=== PATIENT | male | born 1990 | race Caucasian/White ===

== ENCOUNTER 2019-12-28 15:10 | Emergency (ER) | payer BC ==
[2019-12-28] MEDS ORDERED: SODIUM CHLORIDE 1,000 ML IV ONE (15:19)
[2019-12-28 15:20] VITALS: BP 113/71; PULSE 59; TEMP 98.7; BMI 29.6
[2019-12-28] MEDS ORDERED: MAG HYDROX/AL HYDROX/SIMETH 30 ML UNIT-DOSE CUP PO ONE (15:24)
[2019-12-28] MEDS ORDERED: ACETAMINOPHEN 1000 MG/100 ML VIAL (NON FORMULARY) IVPB ONE (15:24)
[2019-12-28] MEDS ORDERED: FAMOTIDINE 20 MG/50 ML IVPB 20 MG/50 ML MG IVPB ONE (15:24)
[2019-12-28] MEDS ORDERED: SODIUM CHLORIDE 0.9% 500 ML INFUS.BAG IV ONE (15:40)
--- NOTE | 2019-12-28 15:45 | PDOC ---
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 Patient states he did not drink any water outside today despite working outside all day. He feels generally weak and dehydrated. Patient is concerned he is experiencing heat exhaustion and wanted to come in to make sure he is okay. Denies chest pain, SOB, difficulty breathing, nausea, vomiting. Denies headache, neck pain, blurry vision. Denies back pain. PCP: None PSH: None reported Allergies: Shellfish Social Hx: Social marijuana and cigarette smoker. Denies illicit drug usage Past History - Medical History Allergies/Adverse Reactions: Allergies Allergy/AdvReac Type Severity Reaction Status Date / Time SEAFOOD Allergy Severe Swelling Uncoded 12/28/19 15:11 Home Medications: Ambulatory Orders NK [No Known Home Medication] 12/28/19 COPD: No - Psycho-Social/Smoking History Smoking History: Current every day smoker Have you smoked in the past 12 months: Yes Number of Cigarettes Smoked Daily: 1 Information on smoking cessation initiated: Yes 'Breaking Loose' booklet given: 02/16/16 - Substance Abuse Hx (Audit-C & DAST Scrn) How often the patient has a drink containing alcohol: Never Score: In Men: 4 or > Positive; In Women: 3 or > Positive: 0 Screen Result (Pos requires Nsg. Audit-10AR): Negative In the last yr the pt used illegal drug/Rx for NonMed reason: No Score: Yes response is considered Positive: 0 Screen Result (Positive result requires Nsg. DAST-10): Negative Review of Systems - Review of Systems Able to Perform ROS?: Yes Comments:: CONSTITUTIONAL: Present: Fatigue Absent: fever, no chills EYES: Absent: visual changes ENT: Absent: ear pain, no sore throat CARDIOVASCULAR: Absent: chest pain, no palpitations RESPIRATORY: Absent: cough, no SOB GI: Absent: abdominal pain, no nausea, no vomiting, no constipation, no diarrhea GENITOURINARY: Absent: dysuria, no frequency, no hematuria MUSKULOSKELETAL: Absent: back pain, no arthralgia, no myalgia SKIN: Absent: rash NEURO: Absent: headache *Physical Exam - Vital Signs Last Vital Signs Temp Pulse Resp BP Pulse Ox 98.7 F 59 L 20 113/71 100 12/28/19 15:11 12/28/19 15:11 12/28/19 15:11 12/28/19 15:11 12/28/19 15:11 - Physical Exam GENERAL: Well-appearing, well-nourished. No apparent distress. HEENT: Normocephalic, atraumatic. PERRL, EOM intact. CARDIOVASCULAR: Normal S1, S2. Regular rate and rhythm. PULMONARY: No evidence of respiratory distress. Lungs clear to auscultation bilaterally. No wheezing, rales or rhonchi. ABDOMEN: Soft, non-distended, non-tender. EXTREMITIES: Normal ROM in all four extremities. No gross deformities. SKIN: Warm, dry. No rash NEUROLOGICAL: No focal neurological deficits. ED Treatment Course - LABORATORY CBC & Chemistry Diagram: 12/28/19 16:09 12/28/19 16:01 Medical Decision Making - Medical Decision Making Carlos is a 29 yo M who denies having any pmh who presents to the [facility] er stating he feels extremely dehydrated after being outside all day as a [employer] worker. Pat nanette states he did not drink any water outside today despite working outside all day. He feels generally weak and dehydrated. Patient is concerned he is experiencing heat exhaustion and wanted to come in to make sure he is okay. Denies chest pain, SOB, difficulty breathing, nausea, vomiting. Denies headache, neck pain, blurry vision. Denies back pain. Vital Signs Temp Pulse Resp BP Pulse Ox 98.7 F 59 L 20 113/71 100 12/28/19 15:11 12/28/19 15:11 12/28/19 15:11 12/28/19 15:11 12/28/19 15:11 DDx IBNLT: Dehydration, heat exhaustion, less likely heat stroke Plan: Hydration, EKG, re-assess EKG: Sinus bradycardia rate of 50, narrow complexes, qrs 96, Prominent R wave in V1, normal axis, no hypertrophy, no ST elevations or depressions, normal T waves, QTc 364 - EKG morphology in lead V1 mildly suspicious for brugada type 1 morphology but clinical scenario not consistent with this. - Handing copy of EKG to patient and instructing him to follow up with PCP regarding EKG to discuss need for cardiology referral Re-assessment: Patient feeling better after IV hydration and tylenol. Labs: Unremarkable and WNL The patient appears clinically sober, is A&O x4, and appears to be capable and have capacity to make reasonable decisions. The patient states they are currently in the emergency department, knows who the president is, states the correct time, correct day, and correct month. The patient is ambulatory in ER and has walked around the nursing station multiple times with a straight gait, and is not ataxic. Tolerating PO well, ate a sandwich and drank juice. Denies having any SI or HI. Patient states will not be driving home. I discussed the physical exam findings, ancillary test results and final diagnoses with the patient. I answered all of the patient's questions. The patient was satisfied with the care received and felt comfortable with the discharge plan and treatment plan. The patient will call their primary care physician within 24 hours to arrange follow-up and will return to the Emergency Department with any new, persistent or worsening symptoms. Dispo: Home with PCP referall/FU and return precautions Please note, this clinical encounter is taking place during a federal and state health care emergency attributable to the novel Stokes Virus pandemic. The [place] of the Department of Health and Human Services has declared, pursuant to the Public Health Service Act 319F-3 (42 U.S.C. 247d-6d), that a covered persons activities related to medical countermeasures against COVID-19 will be immune from liability under Federal and State law. Discharge - Discharge Information Problems reviewed: Yes Clinical Impression/Diagnosis: Dehydration Heat exhaustion Qualifiers: Encounter type: initial encounter Qualified Code(s): T67.5XXA - Heat exhaustion, unspecified, initial encounter Condition: Improved Disposition: HOME - Admission No - Follow up/Referral Referrals: [facility] [place] [Provider Group] - Patient Discharge Instructions Patient Printed Discharge Instructions: Heat Exhaustion and Heat Stroke Additional Instructions: You came into the ER feeling weak and dehydrated. We gave you some IV hydration and you felt better. Your EKG is mildly abnormal in lead V1. We have handed you a copy of the EKG, Please make sure to follow up this finding with your primary care doctor and discuss whether you need to be referred to a fire engine pump operator for this finding. You must return to the Emergency Department with any new complaints, if your symptoms persist and do not improve or if you develop any other new or worsening concerns. As discussed, please call to follow up with your Primary Care physician in 1-2 days to discuss what happened to you in the emergency room, and make sure you are being looked after and taken care of. Your emergency room visit is not complete without this follow up appointment. Please read the attached handouts for further information about your ER visit and what you should do moving forward. Thank you for coming to the [facility]. We hope you feel better soon! Print Language: BOT[place]WANA[place] - Post Discharge Activity
--- NOTE | 2019-12-28 16:01 | PDOC ---
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 Patient was in the back of a [id number] truck, became progressively lightheaded and generally weak and nauseous, did not actually lose consciousness, presents for evaluation. Has had similar episodes in the past, skipped lunch today. - Physicial Exam PE: 12/28/19 16:00 Vital signs stable, normothermic Alert seated comfortably in stretcher Dry mucosa, pupils without jaundice or pallor Heart is regular without murmurs, lungs are clear Epigastric discomfort to palpation without guarding or rebound Neurologically intact - Medical Decision Making 12/28/19 16:00 29-year-old male healthy [employer] worker presents with heat exhaustion, no other red flags on history or physical exam, cardiopulmonary and neurological exams are normal. IV fluids EKG Reassess and disposition accordingly 12/28/19 16:42 received IVF, feels better, tolerating PO EKG wnl stable for d/c, understands return criteria Heart Score/ECG Review #1 ECG reviewed & interpreted by me at: 16:39 General ECG Interpretation: Sinus Rhythm, Normal Rate (50), Normal Intervals (qtc 364, IRBBB), No acute ischemic changes Discharge - Discharge Information Problems reviewed: Yes Clinical Impression/Diagnosis: Heat exhaustion Qualifiers: Encounter type: initial encounter Qualified Code(s): T67.5XXA - Heat exhaustion, unspecified, initial encounter Condition: Improved - Follow up/Referral - Patient Discharge Instructions - Post Discharge Activity
[2019-12-28 16:36] LABS: BASO % 4.6 % (0-2.0); EOS % 1.9 % (0-4.5); HEMATOCRIT 41.9 % (35.4-49); HEMOGLOBIN 14.7 GM/dl (11.7-16.9); LYMPH % 21.1 % (8-40); MCH 30.9 pg (25.7-33.7); MEAN PLT VOLUME 7.8 fl (7.5-11.1); NEUT % 65.4 % (42.8-82.8); PLATELET COUNT 223 K/MM3 (134-434); RBC 4.76 M/mm3 (4.00-5.60); RDW 13.3 % (11.9-15.9); WHITE BLOOD COUNT 6.9 K/mm3 (4.0-10.8)
[2019-12-28 16:46] LABS: ALBUMIN 4.4 g/dl (3.4-5.0); BILIRUBIN,TOTAL 0.6 mg/dl (0.2-1); CALCIUM 9.4 mg/dl (8.5-10); CREATININE 1.1 mg/dl (0.55-1.3); POTASSIUM 4.4 mmol/L (3.5-5.1); TOT PROT 7.4 g/dl (6.4-8.2)
--- NOTE | 2019-12-29 09:16 | EKG ---
Test Reason : Blood Pressure : / mmHG Vent. Rate : 050 BPM Atrial Rate : 050 BPM P-R Int : 142 ms QRS Dur : 096 ms QT Int : 400 ms P-R-T Axes : 049 062 051 degrees QTc Int : 364 ms SINUS BRADYCARDIA RSR' OR QR PATTERN IN V1 SUGGESTS RIGHT VENTRICULAR CONDUCTION DELAY BORDERLINE ECG NO PREVIOUS ECGS AVAILABLE Confirmed by MD ASIM, VAISHNAVI ([id number]) on 12/29/2019 9:15:47 AM Referred By: DR MATTHEW Confirmed By:VAISHNAVI DAILEY MD
== END 2019-12-28 19:10 | disposition home or self-care (01) ==
LOC: FER 15:10
PROC: 3E033NZ Introduction of Analgesics, Hypnotics, Sedatives into Peripheral Vein, Percutaneous Approach (ICD-10-PCS; principal; 2019-12-28)
PROC: 3E033GC Introduction of Other Therapeutic Substance into Peripheral Vein, Percutaneous Approach (ICD-10-PCS; 2019-12-28)
PROC: 3E0337Z Introduction of Electrolytic and Water Balance Substance into Peripheral Vein, Percutaneous Approach (ICD-10-PCS; 2019-12-28)
DX: T67.5XXA Heat exhaustion, unspecified, initial encounter (principal)
CPT/HCPCS: 36415; 80053; 85025; 93005; 99285-25; J0131